=== PATIENT | male | born 1960 | race Caucasian/White ===

== ENCOUNTER 2017-02-22 17:56 | Emergency (ER) | payer BC ==
--- NOTE | 2017-02-22 18:49 | ED ---
Throat Pain/Nasal Congestion - HPI Summary HPI Summary: Pt here w/ 2 days h/o "jaw is not right". Has to thrust and hold it forward to speak and eat. He is able to chew food, swallow, and breath w/o difficulty. If he doesn't keep his jaw forward, he chews on his tongue. Denies recent injury and no h/o TMJ issues. Denies fever, chills, N/V/D, throat pain, otalgia, dental pain, JEFFERY, chest pain, shortness of breath, weakness, tingling, numbness, ab pain, change in bowel/bladder habits. No h/o osteoporosis. Healthy diet - no smoking, has 2 beers per week, no soda, no illicit drug use, no eating d/o. Only medical pathology of mention: *He had a URI 3 weeks ago - better now. No recent antibiotics nor prednisone. *Lifting recently - tried to get [place] for deadlift Tuesday (5 days ago) - denies acute pain then and has only mild jaw soreness now. Again, denies popping or pulling, cracking or sliding of jaw. - History of Current Complaint Chief Complaint: EDDentalPain Time Seen by Provider: 02/22/17 18:16 Hx Obtained From: Patient - Allergies/Home Medications Allergies/Adverse Reactions: Allergies Allergy/AdvReac Type Severity Reaction Status Date / Time No Known Allergies Allergy Verified 02/22/17 18:01 PMH/Surg Hx/FS Hx/Imm Hx Previously Healthy: Yes Endocrine/Hematology History: Denies: Hx Anticoagulant Therapy, Hx Blood Disorders, Hx Diabetes, Hx Thyroid Disease, Autoimmune Disease Cardiovascular History: Reports: Hx Hypertension - lisinopril Denies: Hx Cardiac Arrest, Hx Hypercholesterolemia, Hx Myocardial Infarction , Hx Peripheral Vascular Disease Musculoskeletal History: Reports: Hx Arthritis - shoulders Denies: Hx Osteoporosis Sensory History: Reports: Hx Contacts or Glasses - GLASSES Denies: Hx Cataracts, Hx Glaucoma, Hx Hearing Aid Opthamlomology History: Reports: Hx Contacts or Glasses - GLASSES, Other Sensory Impairments - H/o multiple retinal detachments in B/L eyes - repaired multiple times Denies: Hx Cataracts, Hx Glaucoma Neurological History: Denies: Hx Headaches, Hx Seizures, Hx Transient Ischemic Attacks (TIA) Psychiatric History: Denies: Hx Anxiety, Hx Depression, Hx Substance Abuse - Surgical History Surgery Procedure, Year, and Place: PROSTATE REMOVED. left and right rotator cuff. right ring finger PARTIAL AMPUTATION. RETINA REATTACHEMENT- [place]-2013 Hx Anesthesia Reactions: Yes - 1ST ROTATOR CUFF REPAIR- [facility] Infectious Disease History: No Infectious Disease History: Denies: Traveled Outside the [place] in Last 30 Days - Family History Known Family History: Positive: None - Social History Occupation: Employed Full-time Lives: With Family Alcohol Use: Weekly - beers 2 x week at most Hx Substance Use: No Substance Use Type: Reports: None Hx Tobacco Use: No Smoking Status (MU): Never Smoked Tobacco Review of Systems Negative: Fever, Chills, Fatigue Negative: Photophobia, Blurred Vision, Diplopia, Drainage, Erythema Negative: Epistaxis, Dental Pain, Sore Throat, Ear Ache, Nasal Discharge Negative: Palpitations, Chest Pain Negative: Shortness Of Breath, Cough Negative: Abdominal Pain, Vomiting, Diarrhea, Nausea Positive: no symptoms reported Musculoskeletal: Other - see HPI Negative: Rash, Bruising Positive: Weakness - ?. Negative: Headache, Paresthesia, Numbness, Syncope, Slurred Speech Psychological: Normal All Other Systems Reviewed And Are Negative: Yes Physical Exam Triage Information Reviewed: Yes Vital Signs On Initial Exam: Initial Vitals Temp Pulse Resp BP Pulse Ox 97.4 F 71 17 113/71 100 02/22/17 17:58 02/22/17 17:58 02/22/17 17:58 02/22/17 17:58 02/22/17 17:58 Vital Signs Reviewed: Yes Appearance: Positive: Well-Appearing, No Pain Distress, Well-Nourished Skin: Positive: Warm, Dry Head/Face: Positive: Normal Head/Face Inspection Eyes: Positive: Normal, EOMI, CHU, Conjunctiva Clear ENT: Positive: Normal ENT inspection, Hearing grossly normal, Pharynx normal, TMs normal, Other - depression and elevation of jaw w/o difficulty or pain - TMJ 's w/o edema, clicking or crepitus and are NTTP; no parotid region edema and NTTP. Negative: Nasal congestion, Nasal drainage, Tonsillar swelling, Tonsillar exudate, Trismus, Muffled/hoarse voice, Dental tenderness Dental: Negative: Dental Fracture @, Abscess @ Neck: Positive: Supple, Nontender, No Lymphadenopathy Respiratory/Lung Sounds: Positive: Clear to Auscultation, Breath Sounds Present Cardiovascular: Positive: Normal, RRR, Pulses are Symmetrical in both Upper and Lower Extremities Abdomen Description: Positive: Nontender, Soft Musculoskeletal: Positive: Normal, Strength/ROM Intact - pt speaks w/ jaw in underbite position - speech is clear appears to be breathing and swallowing naturally Neurological: Positive: Normal, Sensory/Motor Intact, Alert, Oriented to Person Place, Time, CN Intact II-III Psychiatric: Positive: Normal Diagnostics - Vital Signs Vital Signs Temp Pulse Resp BP Pulse Ox 02/22/17 18:00 97.4 F 67 17 113/71 100 02/22/17 17:58 97.4 F 71 17 113/71 100 - Laboratory Lab Statement: Any lab studies that have been ordered have been reviewed, and results considered in the medical decision making process. EENT Course/Dx - Diagnoses Provider Diagnoses: Weakness of jaw muscles Discharge - Discharge Plan Condition: Stable Disposition: HOME Patient Education Materials: Weakness (ED) Referrals: Augusto Mulligan MD [Primary Care Provider] - Lenny Landaverde MD [Medical Doctor] - Additional Instructions: You appear to have jaw weakness today - origin of pathology is unknown. You may try ibuprofen with food to reduce pain as well as application of ice. Follow-up with ENT - call tomorrow to schedule an appointment. *If you have difficulty breathing or swallowing or develop symptoms of chest pain, vomiting, rash, headache, neck pain, fever, neck swelling, return to ED
[2017-02-22 19:56] VITALS: BP 135/72
== END 2017-02-22 19:54 | disposition home or self-care (01) ==
LOC: ED 17:56
DX: M62.81 Muscle weakness (generalized) (principal)
CPT/HCPCS: 99282

== ENCOUNTER 2018-10-11 08:01 | Day surgery (SDC) | payer BC ==
[~2018-10-11 08:01] MED LIST: Buffered Lidocaine 0.9% SYRIN* 5 ML/SYR SYRINGE INTRADERM ONE; Dexamethasone TAB* 4 MG PO ONE; DiMENhydriNATE IV* 50 MG/ML VIAL IV PUSH PRN; Famotidine IV* 10 MG/ML 2 ML (20 mg) IV ONE; Morphine VIAL* 4 MG/ML VIAL (1 ml vial) IV PRN; Naloxone* 0.4 MG/ML 1 ML VIAL IV PRN; Ondansetron TAB* 4 MG PO ONE; PROCHLORPERAZINE INJ 5 MG/ML 2 ML VIAL IV PRN; Scopolamine 1.5 mg* PATCH TRANSDERM PRN; fentaNYL* 50 MCG/ML 2 ML VIAL (100 MCG VIAL) IV PRN; oxyCODONE/Acetamin 5/325 MG* TAB PO PRN
[2018-10-11] MEDS ORDERED: Ondansetron ODT TAB* 4 MG ONE (08:48)
[2018-10-11] MEDS ORDERED: Famotidine IV* 10 MG/ML 2 ML (20 mg) ONE (08:48)
[2018-10-11] MEDS ORDERED: ceFAZolin 2 GM PREMIX in ORs 2 GM/50 ML BAG IVPB ONE (08:49)
[2018-10-11] MEDS ORDERED: Dexamethasone TAB* 4 MG ONE (08:49)
[2018-10-11] MEDS ORDERED: Buffered Lidocaine 0.9% SYRIN* 5 ML/SYR SYRINGE ONE (08:56)
[2018-10-11] MEDS ORDERED: KETAMINE HCL* 50 MG/ML 10 ML VIAL ONE (08:57)
[2018-10-11] MEDS ORDERED: fentaNYL* 50 MCG/ML 2 ML VIAL (100 MCG VIAL) ONE (08:57)
[2018-10-11] MEDS ORDERED: Midazolam* 1 MG/ML 5 ML VIAL (5 MG) ONE (08:57)
[2018-10-11] MEDS ORDERED: Ropivacaine* 2 MG/ML 20 ML VIAL (0.2%) ONE (09:51)
[2018-10-11] MEDS ORDERED: Propofol* 10 MG/ML 20 ML BTL ONE (10:44)
[2018-10-11] MEDS ORDERED: Lidocaine 2% PF * 5 ML VIAL ONE (10:44)
[2018-10-11] MEDS ORDERED: Bupivacaine 0.5% SDV PF* 30ML VIAL ONE (10:44)
[2018-10-11] MEDS ORDERED: Scopolamine 1.5 mg* PATCH ONE (10:44)
[2018-10-11] MEDS ORDERED: Ketorolac INJ* 30 MG/ML 1 ML VIAL ONE (10:44)
[2018-10-11] MEDS ORDERED: PROCHLORPERAZINE INJ 5 MG/ML 2 ML VIAL ONE (10:44)
[2018-10-11 13:21] VITALS: BP 125/70
--- NOTE | 2018-10-12 07:03 | OP ---
DATE OF OPERATION: 10/11/18 - [facility] DATE OF : 58 SURGEON: Pippa Cedillo MD RANCH SUPERVISOR: PURVI Herman. An information services assistant was needed for the entirety of the case to help with positioning, retraction, and was utilized throughout all portions of the case. ANESTHESIOLOGIST: Dr. Gutiérrez. ANESTHESIA: General interscalene block. PRE-OP DIAGNOSIS: Left shoulder osteoarthritis with partial tear of the rotator cuff. POST-OP DIAGNOSIS: Left shoulder osteoarthritis with partial tear of the rotator cuff. OPERATIVE PROCEDURE: 1. Left shoulder arthroscopy with extensive glenohumeral debridement including chondroplasty. 2. Revision subacromial decompression with acromioplasty. 3. Rotator cuff repair using Regeneten patch. 4. Subpectoral biceps tenodesis. INDICATIONS: Jonathan Donaldson is a 58-year-old male, who has severe glenohumeral arthritis. He has failed intra-articular injections including Hyalgan as well as corticosteroids. He did respond to a steroid injection in the subacromial space. We did an MRI that demonstrated that the rotator cuff grossly was intact with possible partial-thickness tear. He is not interested in replacement. We did talk about other options. He elected to proceed with left shoulder arthroscopy with decompression and debridement, possible repair of the rotator cuff, possible biceps tenodesis. Risks and benefits were discussed at length included but not limited to bleeding; infection; damage to nerves, vessels, surrounding structures; wound nonhealing; persistent pain; need for further surgery; scarring; stiffness; incomplete relief of symptoms; risk of anesthesia. IMPLANTS USED: Medium Regeneten patch and one Q-Fix 2.8 mm. DESCRIPTION OF PROCEDURE: The patient was greeted in the preoperative area by the attending surgeon. Correct extremity was marked and consent was confirmed. The patient underwent interscalene nerve block by the anesthesiologist after which he was brought back to the operating suite where he was placed in supine position on the operating table. He then underwent general anesthesia LMA intubation after which he was placed in the right lateral decubitus position and all bony prominences were padded. He was secured with pegboard. The left shoulder was prepped and draped in the usual sterile fashion beginning with chlorhexidine soap, scrub, and alcohol wipe and a final prep with ChloraPrep. After appropriate surgical pause indicating side, site, procedure, and administration of antibiotics, the standard postero-lateral portal was made sharply with 11 blade. There was significant osteoarthritis with grade 4 changes. There were small loose bodies and debris that was present. There was obvious tearing in the anterior, posterior, and superior labrum. The anterior portal was made in an outside-in fashion. Shaver was used to debride back the anterior, posterior, and superior labrum, remove the loose bodies. There was abundant synovitis present. The biceps was subluxed mildly anteriorly. The undersurface of the rotator cuff specifically supra and subscap looked intact but had some mild partial-thickness tearing. The subscapularis had some tearing as well there was evidence of damage to the biceps jazlyn. The biceps was then tenotomized for later tenodesis. After the debridement was complete including chondroplasty, the attention was directed to the subacromial space. With the scope in the subacromial space, the lateral portal was made in an outside- in fashion. Shaver was used to debride back the abundant significant bursitis that was present. This revealed very sharp anterolateral spur and previous sutures that were placed from the deltoid fixation. The shaver was used to debride back the abundant synovitis. Attention was directed to the acromioplasty, which was revised and using 4.0 oval bur, the acromioplasty was done including removing the calcified CA ligament in the anterolateral spur. Two foreign bodies were removed, which were non-absorbable Ethibond sutures as well. Attention was then directed to the cuff. The cuff was probed and there was partial-thickness tearing of the bursal side. Because he had findings of partial-thickness tearing, we decided to proceed with a Regeneten patch. The medium-size medium patch was then brought to the field. It was then placed under arthroscopic visualization. It was secured medially with tendon edouard through a separate stab incision and then laterally with bone edouard. The shoulder was taken through range of motion. Final images were obtained. The wounds were copiously irrigated with sterile saline. Attention was directed to the biceps. The bed was air planed to the left side. The anterior aspect of the shoulder was prepped again using ChloraPrep. A 15-blade was used to make an incision in line with the biceps tendon. The soft tissues were carefully dissected to expose the pec tendon. Remainder of the dissection was done bluntly. The pec was then elevated. The bicipital groove was palpated and the biceps was brought through the wound. The groove was prepared in the usual fashion with electrocautery device, red ball rasp, and osteotome for bony bleeding bed. The Q-Fix drill guide was then drilled unicortically and the Q-Fix was deployed with excellent purchase. Sutures were then passed through the tendon 1 cm proximal to the musculotendinous junction in a Agustin-Salvatore type configuration, the excess stump was excised and the biceps was shuttled back to the wound. The wounds were then copiously irrigated and then secured. The wounds were then copiously irrigated with sterile saline. The portals were closed with 3-0 nylon. The anterior wound was closed in layers with 2- 0 Vicryl and 3-0 Monocryl. Sterile dressings were applied. A Cryo/Cuff and UltraSling were applied. He was awoken from anesthesia and transferred to PACU in stable condition. POSTOPERATIVE PLAN: He will be discharged on pain medications and antibiotics. He is allowed elbow, hand, and wrist range of motion. Will have him start therapy next week. DVT prophylaxis was considered but deferred due to no previous personal or family history. I will see the patient back in 10 to 14 days. [id number]/[facility] #: [id number] ELI
[2018-10-14] MEDS ORDERED: Scopolamine PATCH Remove* 1 NOTE MISC PATCH OFF ONE (05:57)
== END 2018-10-11 13:22 | disposition home or self-care (01) ==
LOC: OR 08:01
PROVIDERS: ATTEND Orthopaedic Surgery
DX: M19.012 Primary osteoarthritis, left shoulder (principal); M65.812 Other synovitis and tenosynovitis, left shoulder; M75.112 Incomplete rotator cuff tear or rupture of left shoulder, not specified as traumatic; G89.18 Other acute postprocedural pain; I10 Essential (primary) hypertension; Z85.46 Personal history of malignant neoplasm of prostate
CPT/HCPCS: A9270-GY; C1713; J0690; J0780; J1885; J2250; J2704; J2795; J3010; J8540

== ENCOUNTER 2019-03-07 05:33 | Day surgery (SDC) | payer BC ==
--- NOTE | 2019-02-27 20:58 | HP ---
PREOPERATIVE HISTORY AND PHYSICAL: DATE OF ADMISSION / SURGERY: 03/07/19 ATTENDING SURGEON: Dr. Pippa Cedillo.* (DICTATED BY PURVI HILL) PROCEDURE: Right shoulder arthroscopic rotator cuff repair, decompression, debridement, and subpectoral biceps tenodesis. CHIEF COMPLAINT: Right shoulder pain. HISTORY OF PRESENT ILLNESS: Jonathan is a 58-year-old male, who presents to the clinic for right shoulder pain due to a rotator cuff tear and biceps tendinitis. He has failed conservative measures and therefore agreed to undergo a right shoulder arthroscopic rotator cuff repair, decompression, debridement, and subpectoral biceps tenodesis on 03/07/19. PAST MEDICAL HISTORY: Hypertension, history of prostate cancer. PAST SURGICAL HISTORY: Two shoulder surgeries by Dr. Adame, which were AC resection and decompression, history of prostate resection, 3 eye surgeries for retinal detachment, 2 hand surgeries, and left shoulder arthroscopy with decompression, debridement, biceps tenodesis, and Regeneten patch. The patient denies prior complications to anesthesia. MEDICATIONS: 1. Lisinopril 1 by mouth daily. 2. Ibuprofen as needed for pain. ALLERGIES: No known drug allergies. FAMILY HISTORY: Positive for lung cancer in his father and osteoarthritis, otherwise negative. Denies family history of DVT or PE. SOCIAL HISTORY: He lives alone. He is right-hand dominant. He works in maintenance. He denies tobacco consumption. He reports rare alcohol use. REVIEW OF SYSTEMS: A 14-point review of systems was reviewed with the patient. Positive for current complaint, otherwise negative. Denies fever, chills, chest pain, shortness of breath, history of bleeding disorder, history of DVT or PE. PHYSICAL EXAMINATION GENERAL: A 58-year-old well-developed, well-nourished male, in no acute distress. VITAL SIGNS: Height 69, weight 182, blood pressure 138/82, respiratory rate 15 , temperature 96.5, BMI 26.9. HEENT: Normocephalic, atraumatic. PERRLA. Throat clear. NECK: Supple. PULMONARY: Lungs are clear to auscultation bilaterally. No wheezing, rhonchi or rales. CARDIO: Regular rate and rhythm. S1, S2. No murmurs, gallops or rubs. No edema. ABDOMEN: Positive bowel sounds. Soft, nontender. NEURO: Alert and oriented x3. Cranial nerves grossly intact. MUSCULOSKELETAL: Right upper extremity: Skin is intact. No warmth or erythema. Forward flexion 150, abduction 150, external rotation 50. +4/5 strength to rotator cuff testing with pain. Full range of motion of the elbow, wrist, and hand. +2 radial pulse. Sensation intact to light touch distally. Positive impingement, Speed, Reaves-Les, [place]. DIAGNOSTIC STUDIES/LAB DATA: Multi-view x-rays of the right shoulder revealed glenohumeral osteoarthritis. PLAN/RECOMMENDATIONS: The patient is scheduled to undergo right shoulder arthroscopic rotator cuff repair, decompression, debridement, subpectoral biceps tenodesis with Dr. Cedillo on 03/07/19. Tylenol, ibuprofen, and Percocet will be used for postop pain management, but the patient already has Percocet at home and does not need a new script. Follow up i 10 to 14 days postop for followup and suture removal. PURVI HILL [id number]/[facility] #: [id number] MTDD
[~2019-03-07 05:33] MED LIST changes: -Buffered Lidocaine 0.9% SYRIN* 5 ML/SYR SYRINGE INTRADERM ONE; +Buffered Lidocaine 1% SYRIN* 1 ML/SYRINGE INTRADERM ONE; -Dexamethasone TAB* 4 MG PO ONE; -DiMENhydriNATE IV* 50 MG/ML VIAL IV PUSH PRN; -Famotidine IV* 10 MG/ML 2 ML (20 mg) IV ONE; -Morphine VIAL* 4 MG/ML VIAL (1 ml vial) IV PRN; -Naloxone* 0.4 MG/ML 1 ML VIAL IV PRN; -Ondansetron TAB* 4 MG PO ONE; -PROCHLORPERAZINE INJ 5 MG/ML 2 ML VIAL IV PRN; -Scopolamine 1.5 mg* PATCH TRANSDERM PRN; -fentaNYL* 50 MCG/ML 2 ML VIAL (100 MCG VIAL) IV PRN; -oxyCODONE/Acetamin 5/325 MG* TAB PO PRN
[2019-03-07] MEDS ORDERED: Dexamethasone IV* 4 MG/ML 1 ML (4 MG) IV SLOW PU ONE (06:00)
[2019-03-07] MEDS ORDERED: Famotidine IV* 10 MG/ML 2 ML (20 mg) IV ONE (06:00)
[2019-03-07] MEDS ORDERED: Lactated Ringers 1000 ML Bag* 1,000 ML IV SCH (06:00)
[2019-03-07] MEDS ORDERED: Buffered Lidocaine 1% SYRIN* 1 ML/SYRINGE INTRADERM ONE (06:04)
[2019-03-07] MEDS ORDERED: ceFAZolin 2 GM in NS PREMIX(*) 2 GM/100 ML BAG IVPB ONE (06:04)
[2019-03-07] MEDS ORDERED: Dexamethasone IV* 4 MG/ML 1 ML (4 MG) ONE (06:04)
[2019-03-07] MEDS ORDERED: Famotidine IV* 10 MG/ML 2 ML (20 mg) ONE (06:04)
[2019-03-07] MEDS ORDERED: Ropivacaine* 2 MG/ML 20 ML VIAL (0.2%) ONE (06:41)
[2019-03-07] MEDS ORDERED: Scopolamine 1.5 mg* PATCH ONE (07:06)
[2019-03-07] MEDS ORDERED: fentaNYL* 50 MCG/ML 2 ML VIAL (100 MCG VIAL) ONE ×4 (07:14→09:35)
[2019-03-07] MEDS ORDERED: Atracurium* 10 MG/ML 10 ML VIAL ONE (07:14)
[2019-03-07] MEDS ORDERED: Midazolam* 1 MG/ML 5 ML VIAL (5 MG) ONE (07:14)
[2019-03-07] MEDS ORDERED: Propofol* 10 MG/ML 20 ML BTL ONE (07:15)
[2019-03-07] MEDS ORDERED: Lidocaine 2% PF * 5 ML VIAL ONE (07:15)
[2019-03-07] MEDS ORDERED: Ondansetron INJ* 2 MG/ML VIAL ONE (07:15)
[2019-03-07] MEDS ORDERED: ROPIVACAINE 5 MG/ML 30 ML BTL (0.5%) ONE (07:20)
[2019-03-07] MEDS ORDERED: Scopolamine 1.5 mg* PATCH TRANSDERM SCH (08:00)
[2019-03-07] MEDS ORDERED: Ondansetron INJ* 2 MG/ML VIAL IV PRN (08:29)
[2019-03-07] MEDS ORDERED: Naloxone* 0.4 MG/ML 1 ML VIAL IV PRN (08:29)
[2019-03-07] MEDS ORDERED: DiMENhydriNATE IV* 50 MG/ML VIAL IV PUSH PRN (08:29)
[2019-03-07] MEDS ORDERED: Glycopyrrolate IV* 0.2 MG/ML 1 ML VIAL ONE (08:36)
[2019-03-07] MEDS: fentaNYL* 50 MCG/ML 2 ML VIAL (100 MCG VIAL) IV PRN ×2 (09:36→09:56)
[2019-03-07] MEDS ORDERED: oxyCODONE/Acetamin 5/325 MG* TAB ONE ×2 (10:02→10:22)
[2019-03-07] MEDS: oxyCODONE/Acetamin 5/325 MG* TAB PO PRN ×2 (10:05→10:34)
[2019-03-07] MEDS ORDERED: HYDROmorphone INJ1* 1 MG/ML SYRINGE ONE (11:12)
[2019-03-07] MEDS: HYDROmorphone INJ1* 1 MG/ML SYRINGE IV PRN ×3 (11:13→11:44)
[2019-03-07 11:21] VITALS: BP 148/96
[2019-03-07] MEDS ORDERED: Ketorolac INJ* 60 MG/2 ML VIAL IV PUSH ONE (11:47)
[2019-03-07] MEDS ORDERED: Ketorolac INJ* 30 MG/ML 1 ML VIAL ONE (11:47)
--- NOTE | 2019-03-07 14:23 | OP ---
CC: PCP* OPERATIVE REPORT: DATE OF OPERATION: 03/07/19 - SDS DATE OF : 58 SURGEON: Pippa Cedillo MD. CONFERENCE TRANSLATOR: PURVI Herman ANESTHESIOLOGIST: Dr. Upton. ANESTHESIA: General interscalene block. PRE-OP DIAGNOSIS: Right shoulder glenohumeral arthritis with partial tearing of the rotator cuff. POST-OP DIAGNOSIS: Right shoulder glenohumeral arthritis with partial tearing of the rotator cuff. OPERATIVE PROCEDURE: Right shoulder arthroscopy with: 1. Extensive glenohumeral debridement including chondroplasty. 2. Subacromial decompression with acromioplasty. 3. Rotator cuff repair using Regeneten patch. 4. Open biceps tenodesis. COMPLICATIONS: None. ESTIMATED BLOOD LOSS: Minimal. IMPLANTS USED: One Regeneten patch and one Q-Fix 2.8 mm. INDICATIONS: Jonathan Donaldson is a 58-year-old male who has had persistent bilateral shoulder pain and osteoarthritis. He also has rotator cuff symptoms. The risks and benefits of the surgery were discussed at length including, but not limited to bleeding; infection; damage to nerves, vessels, surrounding structures; wound nonhealing; persistent pain; need for further surgery; scarring; stiffness; incomplete relief of symptoms; risks of anesthesia. DESCRIPTION OF PROCEDURE: The patient was greeted in the preoperative area by the attending surgeon. The correct extremity was marked and consent was confirmed. He then underwent interscalene nerve block by the anesthesiologist, after which he was brought back to the operating suite and he was placed in the supine position on the operating table. He then underwent general anesthesia and endotracheal intubation. He was then placed in the left lateral decubitus position. All bony prominences were padded and secured with pegboard. The right shoulder was draped unsterile with 15 pounds of traction for a good traction. The right shoulder was then prepped and draped in the usual sterile fashion beginning with chlorhexidine soap, scrub, and alcohol wipe, and a final prep with ChloraPrep. After appropriate surgical pause indicating the side, site, procedure, and administration of antibiotics, the standard posterolateral portal was made sharply with 11 blade. The scope was introduced into the joint. The joint was examined. There was grade 3 to 4 changes of the glenohumeral joint. The biceps had unstable tearing and fraying. The undersurface of the rotator cuff had high -grade partial thickness tearing, but no evidence of full thickness tear. Inferior recess was intact. There was abundant synovitis. The anterior portal was made in an outside- in fashion. Shaver was used to debride back the anterior, posterior, and superior labrum to do chondroplasty. There was a small loose body, but it appeared to be adherent. The biceps was then tenotomized for later tenodesis. The scope was positioned in the subacromial space. There was abundant significant thick bursa with adhesions present. This was debrided back using the shaver in the anterior lateral portal. Most of this was hyperemic and this was debrided back. The hemostasis was obtained using electrocautery device. Once this was done, the undersurface of the acromion was skeletonized using electrocautery device. The previous sutures from the previous surgery were identified. A revision acromioplasty was done using a 4-0 oval samina. All excess bone and debris was removed. Again, attention was directed to make sure the abundant bursa was removed. The cuff was then probed and found to be intact on the bursal side. Decision was made to proceed with the Regeneten patch. The size medium Regeneten patch was then brought to the field and placed under direct arthroscopic visualization. Through 2 separate stab incisions, cannulas were placed and these were utilized to place the tendon edouard medially, secured the graft and then laterally it was secured with the PEEK edouard in the bone. The final images were obtained. The shoulder was taken through gentle range of motion and found to be intact. Attention was then directed to the biceps. The bed was air planed to the right side. The anterior aspect of the shoulder was prepped again using ChloraPrep. A 15-blade was used to make an incision along the biceps tendon. Soft tissues were carefully dissected bluntly. The pec tendon was then identified and elevated with a Brooklynn. The biceps was found in the groove and brought through the wound and had abundant synovitis. The groove was prepared in the usual fashion using electrocautery device, red ball rasp, and osteotome. The Q- Fix guide was then drilled unicortically, and then the Q-Fix was deployed with excellent purchase. The sutures were then passed through the tendon approximately 1 cm proximal to musculotendinous junction using Agustin-Salvatore type configuration. Excess stump was excised and the biceps was shuttled back to the wound. The wounds were then copiously irrigated with sterile saline. Portals were closed with 3-0 nylon. The skin was closed with layers of 3-0 Monocryl in subcutaneous and running suture. Sterile dressings were applied. Cryo/Cuff and UltraSling were applied. He was awoken from anesthesia and transferred to PACU in stable condition. POSTOPERATIVE PLAN: He will be nonweightbearing. He will be in a sling for 4 weeks. He will be discharged on pain medication. DVT prophylaxis was considered, but deferred due to no previous personal or family history. I will see the patient back in 10 to 14 days. [id number]/[facility] #: [id number] ELI
== END 2019-03-07 12:35 | disposition home or self-care (01) ==
LOC: OR 05:33
PROVIDERS: ATTEND Orthopaedic Surgery
DX: M75.111 Incomplete rotator cuff tear or rupture of right shoulder, not specified as traumatic (principal); M19.011 Primary osteoarthritis, right shoulder; M75.21 Bicipital tendinitis, right shoulder; I10 Essential (primary) hypertension; Z85.46 Personal history of malignant neoplasm of prostate
CPT/HCPCS: A9270-GY; C1713; C1776; J0690; J1100; J1170; J1885; J2250; J2405; J2704; J2795; J3010

== ENCOUNTER 2019-05-24 14:28 | Inpatient (IN) | payer BC ==
[~2019-05-24 14:28] MED LIST changes: +Acetaminophen TAB* 325 MG PO ONE; +Dexamethasone IV* 4 MG/ML 1 ML (4 MG) IV SLOW PU ONE; +Famotidine TAB* 20 MG PO ONE; +Gabapentin CAP(*) 300 MG PO ONE; +Lactated Ringers 1000 ML Bag* 1,000 ML IV SCH; +Scopolamine 1.5 mg* PATCH TRANSDERM ONE; +celeCOXIB CAP* 200 MG PO ONE
[2019-05-24] MEDS ORDERED: ceFAZolin 2 GM in NS PREMIX(*) 2 GM/100 ML BAG IVPB ONE (14:37)
[2019-05-24] MEDS ORDERED: Buffered Lidocaine 1% SYRIN* 1 ML/SYRINGE INTRADERM ONE (14:51)
[2019-05-24] MEDS ORDERED: Lidocaine 1% MPF ** 5 ML VIAL ONE (15:14)
[2019-05-24] MEDS ORDERED: ROPIVACAINE 5 MG/ML 30 ML BTL (0.5%) ONE (15:14)
[2019-05-24] MEDS ORDERED: Famotidine IV* 10 MG/ML 2 ML (20 mg) IV SLOW PU ONE (15:19)
[2019-05-24] MEDS ORDERED: Famotidine IV* 10 MG/ML 2 ML (20 mg) ONE (15:20)
[2019-05-24] MEDS ORDERED: Scopolamine 1.5 mg* PATCH ONE ×2 (15:28→20:58)
[2019-05-24] MEDS ORDERED: Gabapentin CAP(*) 300 MG ONE (15:28)
[2019-05-24] MEDS: Gabapentin CAP(*) 300 MG PO ONE ×2 (15:31→15:35)
[2019-05-24] MEDS: Scopolamine 1.5 mg* PATCH TRANSDERM SCH ×2 (15:31→15:35)
[2019-05-24] MEDS ORDERED: Midazolam* 1 MG/ML 5 ML VIAL (5 MG) ONE (15:47)
[2019-05-24] MEDS ORDERED: fentaNYL* 50 MCG/ML 2 ML VIAL (100 MCG VIAL) ONE ×2 (15:47→18:08)
[2019-05-24] MEDS ORDERED: Dexamethasone IV* 4 MG/ML 1 ML (4 MG) ONE (15:49)
[2019-05-24] MEDS ORDERED: Ondansetron INJ* 2 MG/ML VIAL ONE (15:49)
[2019-05-24] MEDS ORDERED: Ketorolac INJ* 30 MG/ML 1 ML VIAL ONE (15:49)
[2019-05-24] MEDS ORDERED: Propofol* 10 MG/ML 20 ML BTL ONE ×2 (15:49→20:23)
[2019-05-24] MEDS ORDERED: DiMENhydriNATE IV* 50 MG/ML VIAL ONE (15:49)
[2019-05-24] MEDS ORDERED: Glycopyrrolate IV* 0.2 MG/ML 1 ML VIAL ONE (15:49)
[2019-05-24] MEDS ORDERED: KETAMINE HCL* 50 MG/ML 10 ML VIAL ONE (17:12)
[2019-05-24] MEDS ORDERED: Acetaminophen IV 1GM/100ML * 1,000 MG/100 ML VIAL IVPB ONE (19:16)
[2019-05-24] MEDS ORDERED: oxyCODONE TAB* 5 MG TAB PO PRN ×2 (19:16→19:38)
[2019-05-24] MEDS ORDERED: HYDROmorphone INJ1* 1 MG/ML SYRINGE IV PRN (19:16)
[2019-05-24] MEDS ORDERED: Naloxone* 0.4 MG/ML 1 ML VIAL IV PRN (19:16)
[2019-05-24] MEDS ORDERED: DiMENhydriNATE IV* 50 MG/ML VIAL IV PUSH PRN (19:16)
[2019-05-24] MEDS ORDERED: Gabapentin CAP(*) 100 MG PO ONE (19:18)
[2019-05-24] MEDS ORDERED: diPHENhydraMINE IV* 50 MG/ML 1 ml VIAL (BENADRYL) IV PRN (19:38)
[2019-05-24] MEDS ORDERED: traMADol TAB* 50 MG PO PRN (19:38)
[2019-05-24] MEDS ORDERED: Cyclobenzaprine TAB* 10 MG PO PRN (19:38)
[2019-05-24] MEDS ORDERED: Polyethylene Glycol 3350* 17 GM PACKET PO PRN (19:38)
[2019-05-24] MEDS ORDERED: Ondansetron INJ* 2 MG/ML VIAL IV PRN (19:38)
[2019-05-24] MEDS ORDERED: Morphine 4 MG/ML VIAL (1 ml) 4 MG/ML VIAL IV PRN (19:38)
[2019-05-24] MEDS ORDERED: diPHENhydraMINE PO* 25 MG PO PRN (19:38)
[2019-05-24] MEDS ORDERED: Magnesium Hydroxide LIQ* 30 ML UDC PO PRN (19:38)
[2019-05-24] MEDS ORDERED: oxyCODONE/Acetamin 5/325 MG* TAB PO PRN (19:50)
[2019-05-24] MEDS ORDERED: Acetaminophen TAB* 325 MG PO SCH (20:00)
[2019-05-24] MEDS ORDERED: Lactated Ringers 1000 ML Bag* 1,000 ML IV SCH (20:00)
[2019-05-24] MEDS ORDERED: HYDROmorphone INJ1* 1 MG/ML SYRINGE ONE (20:06)
[2019-05-24] MEDS ORDERED: Gabapentin CAP(*) 100 MG ONE (20:18)
[2019-05-24] MEDS ORDERED: Acetaminophen IV 1GM/100ML * 100 ML ONE (20:19)
[2019-05-24] MEDS: Magnesium Hydroxide LIQ* 30 ML UDC PO SCH (23:20)
[2019-05-24] MEDS: Docusate CAP* 100 MG PO SCH (23:20)
--- NOTE | 2019-05-25 00:58 | OP ---
CC: PCP, Augusto Mulligan MD * DATE OF OPERATION: 05/24/19 - ROOM #332 DATE OF : 58 SURGEON: Pippa Cedillo MD ASSISTANTS: 1. PURVI Herman 2. PRUVI Kirkland Assistants were needed for the entirety of the case to help with positioning, retraction, and were utilized throughout all portions of the case. ANESTHESIOLOGIST: Dr. Carrillo. ANESTHESIA: General interscalene block. PRE-OP DIAGNOSIS: Right shoulder end-stage glenohumeral arthritis and intact rotator cuff. POST-OP DIAGNOSIS: Right shoulder end-stage glenohumeral arthritis and intact rotator cuff. OPERATIVE PROCEDURE: Right anatomic total shoulder replacement. COMPLICATIONS: None. ESTIMATED BLOOD LOSS: About 200. IMPLANTS USED: Tornier Simplicity size 2 nucleus with a 46 head and a size M30 Cortiloc peg glenoid. OUTPUT: Drain x1. DISPOSITION: Stable. INDICATIONS: Jonathan Donaldson is a 59-year-old male with persistent right shoulder pain and a partial tear of the rotator cuff. He had undergone arthroscopy with biceps tenodesis and decompression in a Regeneten patch in hopes of trying get this to heal. He subsequently had struggled and his pain was found to be intraarticular. After extensive discussion of the risks and benefits of the operative versus nonoperative treatment, he has elected to proceed with surgical treatment. Risks and benefits were discussed at length included but not limited to bleeding, infection, damage to nerves, vessels, surrounding structures, wound nonhealing, persistent pain, need for surgery, scarring, stiffness, incomplete relief of symptoms, need for further surgery, failure of the repair, fracture, risks of anesthesia, risk of DVT. He has elected to proceed. DESCRIPTION OF PROCEDURE: The patient was greeted in the preoperative area by the attending surgeon. Correct extremity was marked and consent was confirmed. The patient underwent interscalene nerve block by the anesthesiologist after which he was brought back to the operating suite. He was then placed in the supine position, underwent general anesthesia with endotracheal intubation after which he was placed in a lazy beach chair position with all bony prominences padded. A bump was placed under the scapula. The patient was secured to the bed. All bony prominences were padded. The right arm was then prepped and draped in the usual sterile fashion, beginning with chlorhexidine soap, scrub, and alcohol wipe and a final prep of ChloraPrep. After appropriate surgical pause indicating site, side, procedure, and administration of antibiotics, the deltopectoral incision was made sharply with a 15 blade. Soft tissues were carefully dissected through the deltopectoral interval, which was then established. The cephalic vein was taken laterally. The significant scar tissue of clavipectoral fascia was examined in the patient and preoperative range of motion testing with 4+ about 120 abduction and 90 of external rotation to the 30 degree. The patient had undergone previous biceps tenodesis from the previous surgery, but there is abundant scar tissue in clavipectoral fascia that was identified. The conjoint tendon was identified and dissection was taken through that. The proximal 1.5 cm was then released with the pec tendon. Hemostasis was obtained at all times with the electrocautery device. The bicipital groove was palpated and biceps was retracted proximally. The subscap was identified proximally and distally and then the subscapular fascia was used to release. The subscap was intact with # 5 Ethibond suture. The head was gently externally rotated and brought through the wound. The rotator cuff supraspinatus had some partial thickness tearing at the anterior aspect. proceed with primary replacement based on the patient's activity level. The head had grade 4 changes with large anterior inferior osteophytes which were debrided using the osteotome and removed to expose the head and neck junction. After the supervision, then a provisional neck cut was first marked and then made using freehand technique. The care was taken to protect the rotator cuff throughout. The Simplicity system was then used. First the appropriate size guide was then placed. A size 2 was found to be appropriate. The standard pin was then placed. The bone quality was very good. The humerus was then reamed and then the starting drill had to be used before the nucleus could be advanced. Because of the very good part of bone, a size 1 was used as a trial and then protector plate was placed. Attention was directed to the glenoid. With the posterior retractor placed, the posterior retractors were quite tight. Care was taken prior to preserve the rotator cuff. CA ligament was released somewhat but not entirely to prevent instability. The glenoid was exposed, had significant synovitis. The anterior, posterior, superior labrum were then released using electrocautery device. The inferior labrum was exposed as well with care to prevent the soft tissues. At this point, provisional marking to find out superior, inferior, anterior, and posterior borders were identified. The subscap was released from the superior middle and inferior glenohumeral ligaments and that was mobilized. The glenoid was exposed. The center point was then marked. The sizing guides were placed and M30 was found to be more appropriate fit with the patient size of glenoid. Reaming then began after a guidewire was placed in the center of the glenoid. Remaining then began until good bony bleeding was identified. Once this was done, the center drill bit was then drilled. The glenoid Cortiloc peg guide was then placed and three peg holes were then drilled. The trial was then placed and once it was found to be seated appropriately, the final trial was chosen. The shoulder was then thoroughly lavaged and removed of any loose debris and thoroughly dried. Cement was mixed on the back table. The cement was then placed in the 3 interlocking peg holes and the implant was impacted into position and held until the cement secured. Excess cement was removed to prevent any foreign body or loose bodies. Once this was done, attention was directed to the humerus. The humerus was brought through the wound again. The trialing began. A size 46 was found to be appropriate with a good amount of anterior posterior glide and shuck and bounced back. This was found to not overstuff and allowed for good range of motion with forward flexion to about 150, abduction to about 110, external rotation would be measured with subscap. Subscap was able to be restored without overtightening. Final implants were chosen on the humerus. The trial was removed. The size 2 nucleus was then impacted into position. Right after trans osteotomes were placed for the subscap repair, the final implants and head were impacted into position. The shoulder was then reduced and taken through range of motion. The subscap was then repaired in a horizontal mattress configuration. An attempt to try to do a double-row fixation was made but the bone quality was so hard, it could not hold knotless anchor. The interval was closed with #2 Ethibond sutures. The subscap was closed with excellent purchase. The wounds were copiously irrigated with sterile saline. Intraarticular drain was placed and the deltopectoral interval was closed with #2 Ethibond sutures. The wounds were irrigated again. The skin was closed in layers with 3-0 Monocryl in a subcutaneous and then a running fashion. Sterile dressings were applied. The patient's Cryo/Cuff and UltraSling were placed. The patient was then awoken from anesthesia and transferred to the PACU in stable condition. POSTOPERATIVE PLAN: He will be nonweightbearing. He will be in a sling for 6 weeks. He will be admitted overnight and discharged on pain medications, Lovenox while in house and home without any DVT prophylaxis. He will receive 24 hours of postoperative antibiotics. We will see the patient back in 10 to 14 days. Postoperative x-rays reviewed and found to be acceptable. Drain will be discharged on postop day 1. [id number]/[facility] #: [id number] MTDRegan
[2019-05-25] MEDS: ceFAZolin 1 GM ADVAN(*) 1 GM in NS 0.9% 50 ML* 50 ML IVPB SCH ×2 (02:38→10:26)
[2019-05-25] MEDS: oxyCODONE/Acetamin 5/325 MG* TAB PO PRN ×3 (04:22→13:18)
[2019-05-25] MEDS: Acetaminophen TAB* 325 MG PO SCH ×2 (05:18→14:14)
[2019-05-25 08:04] LABS: Calcium 9.1 mg/dL (8.6-10.3); Potassium 4.7 mmol/L (3.5-5.0)
[2019-05-25 08:09] LABS: BUN/Creatinine Ratio 19.6 (8-20); EGFR African American 90.1 (>60); EGFR Non-African American 74.5 (>60)
[2019-05-25] MEDS: Docusate CAP* 100 MG PO SCH (08:56)
[2019-05-25] MEDS: Magnesium Hydroxide LIQ* 30 ML UDC PO SCH (08:56)
[2019-05-25] MEDS ORDERED: Enoxaparin(*) 40 MG/0.4 ML SYR SUBCUT SCH (09:00)
[2019-05-25] MEDS ORDERED: Lisinopril TAB* 10 MG PO SCH (09:00)
[2019-05-25 09:06] LABS: Hematocrit 36 % (42-52); Hemoglobin 12.3 g/dL (14.0-18.0); Mean Platelet Volume 8.5 fL (7.4-10.4); Platelet Count 217 10^3/uL (150-450)
--- NOTE | 2019-05-25 11:00 | DS ---
Orthopedic Discharge Summary - Discharge Summary Date of Admission:05/24/19 Date of Discharge: 05/25/19 Date of Surgery: 05/24/19 Attending Orthopedic Provider: Dr. Cedillo Pre-operative Diagnosis: Degenerative arthritis right shoulder Operative Procedure: Right total shoulder arthroplasty Disposition of Patient: home Condition of Patient: stable History: MELISA BALDERAS is a 59 year old M with years of increasingly severe right shoulder pain. Patient has failed conservative management and has elected to undergo a right total shoulder replacement Hospital Course: MELISA was admitted to [facility] on 05/24/19. Patient underwent a right total shoulder arthroplasty without complication followed by a brief recovery in PACU and transfer to the Short Stay Surgical Unit in stable condition. Our hospitalist service, physical therapy and occupational therapy also participated in this patients care. Post-op day 1: patient was alert and in no acute distress. Dressing was clean, dry and intact. Operative extremity hand and wrist motion intact, sensation intact to light touch distally, DP2+. dressing was changed, hemovac discontinued without difficulty,incision was clean, dry and intact. Dressing with 4x4s and Tega derm applied. Patient was deemed to be medically and orthopedically stable for discharge. Physical therapy goals were met. Home Medications Medication Instructions Recorded Confirmed Type Lisinopril/HCTZ 08/25.5(NF) 1 tab PO QAM 10/24/14 05/24/19 History [Zestoretic 08/25.5(NF)] Diclofenac Sodium 75 mg PO BID 05/10/19 05/24/19 History Docusate CAP* [Colace Cap*] 100 mg PO BID cap 05/25/19 Rx Continue with sling, non weight bearing right upper extremity no Range of motion right shoulder, may range elbow, wrist and fingers Patient did not need rx of narcotics, states he has Percocet from prior surgery to use follow up with as scheduled 10-14 days
[2019-05-25] MEDS ORDERED: Cephalexin CAP* 500 MG PO ONE ×2 (11:34→12:30)
[2019-05-25 11:54] VITALS: BP 113/60
[2019-05-27] MEDS ORDERED: Scopolamine PATCH Remove* 1 NOTE MISC PATCH OFF SCH (15:30)
== END 2019-05-25 13:34 | disposition home or self-care (01) | DRG 322 ==
LOC: AA 14:28 → SSU 22:00
PROVIDERS: ADMIT Orthopaedic Surgery; ATTEND Orthopaedic Surgery
PROC: 0RRJ0JZ Replacement of Right Shoulder Joint with Synthetic Substitute, Open Approach (ICD-10-PCS; principal; 2019-05-24 16:00)
DX: M19.011 Primary osteoarthritis, right shoulder (principal); H33.20 Serous retinal detachment, unspecified eye; I10 Essential (primary) hypertension; M75.111 Incomplete rotator cuff tear or rupture of right shoulder, not specified as traumatic; J30.2 Other seasonal allergic rhinitis; E78.00 Pure hypercholesterolemia, unspecified; Z82.49 Family history of ischemic heart disease and other diseases of the circulatory system; Z90.79 Acquired absence of other genital organ(s); Z85.46 Personal history of malignant neoplasm of prostate; Z80.1 Family history of malignant neoplasm of trachea, bronchus and lung; Z82.61 Family history of arthritis; Z89.021 Acquired absence of right finger(s); Z98.52 Vasectomy status; Z82.5 Family history of asthma and other chronic lower respiratory diseases
CPT/HCPCS: 36415; 80048; 85014; 85018; 85049; A9270-GY; G8978-GP-CI; G8979-GP-CH; J0690; J1100; J1170; J1240; J1650; J1885; J2250; J2405; J2704; J2795; J3010

== ENCOUNTER 2019-11-16 06:29 | Inpatient (IN) | payer BC ==
[~2019-11-16 06:29] MED LIST changes: -Acetaminophen TAB* 325 MG PO ONE; -Dexamethasone IV* 4 MG/ML 1 ML (4 MG) IV SLOW PU ONE; -Famotidine TAB* 20 MG PO ONE; -Gabapentin CAP(*) 300 MG PO ONE; -Scopolamine 1.5 mg* PATCH TRANSDERM ONE; +Tranexamic Acid 1,000 MG in NS 0.9% 50 ML* (outpatient use) IV SCH; -celeCOXIB CAP* 200 MG PO ONE
--- OUTSIDE RECORDS SUMMARY | 2019-11-16 06:33 | XMS REPORT | Continuity of Care Document ---
:1960 External Reference #:[id number] Author Name Pippa Cedillo MD (transmitted by agent of provider Cinthya Tolbert) Address [address] [place] [address] Care Team Providers Name Role Phone Augusto Mulligan M.D. - Family Medicine Care Team Information Air Value Tester [phone] Problems Active Problems Provider Date Localized, primary osteoarthritis of the shoulder Pippa Cedillo MD Onset: 05/2018 region Strain of muscle(s) and tendon(s) of the rotator Pippa Cedillo MD Onset: 08/2018 cuff of left shoulder, subsequent encounter Synovitis and tenosynovitis Pippa Cedillo MD Onset: 08/17/2018 Strain of muscle(s) and tendon(s) of the rotator Pippa Cedillo MD Onset: cuff of right shoulder, subsequent encounter Bicipital tenosynovitis Pippa Cedillo MD Onset: 03/20/2019 Incomplete rotator cuff tear or rupture of right Pippa Cedillo MD Onset: 05/2019 shoulder, not specified as traumatic Social History Type Date Description Comments Sex Unknown ETOH Use Denies alcohol use Tobacco Use Start: Unknown Patient has never smoked Smoking Status Reviewed: 11/01/19 Patient has never smoked Exercise Type/Frequency Exercises regularly Allergies, Adverse Reactions, Alerts Description No Known Drug Allergies Medications Active Medications SIG Qnty Indications Ordering Provider Date Lisinopril-Hydrochlorot 1 by mouth every Unknown hiazide day 10-12.5mg Tablets History Medications Amoxicillin/Clavulanate take 4 tabs 1 4tabs M19.011 Zaneb 08/16/2019 - Potassium hour prior to MD Nguyen 10/31/2019 500-125mg Tablets dental procedure Keflex 1 tab by mouth 20caps Pippa 05/25/2019 - 500mg Capsules four times a MD Nguyen 05/30/2019 day Percocet take 1 tabs by 42tabs Pippa 05/25/2019 - 5-325mg Tablets mouth q4-6 MD Nguyen 05/30/2019 hours as needed pain Medications Administered in Office Medication SIG Qnty Indications Ordering Provider Date Depomedrol 40MG Joseph Adame M.D. 01/15/2019 Injection Triamcinolone (Kenalog) Pippa Cedillo MD 08/17/2018 Injection Hyalagan Or Supartz, For Pippa Cedillo MD 05/23/2018 Intra-Articular Inject Per Dose Injection Hyalagan Or Supartz, For Pippa Cedillo MD 05/23/2018 Intra-Articular Inject Per Dose Injection Triamcinolone (Kenalog) Pippa Cedillo MD 05/23/2018 Injection Hyalagan Or Supartz, For Pippa Cedillo MD 05/11/2018 Intra-Articular Inject Per Dose Injection Hyalagan Or Supartz, For Pippa Cedillo MD 05/11/2018 Intra-Articular Inject Per Dose Injection Hyalagan Or Supartz, For Pippa Cedillo MD 05/04/2018 Intra-Articular Inject Per Dose Injection Hyalagan Or Supartz, For Pippa Cedillo MD 05/04/2018 Intra-Articular Inject Per Dose Injection Hyalagan Or Supartz, For Pippa Cedillo MD 04/27/2018 Intra-Articular Inject Per Dose Injection Hyalagan Or Supartz, For Pippa Cedillo MD 04/27/2018 Intra-Articular Inject Per Dose Injection Hyalagan Or Supartz, For Pippa Cedillo MD 04/20/2018 Intra-Articular Inject Per Dose Injection Hyalagan Or Supartz, For Pippa Cedillo MD 04/20/2018 Intra-Articular Inject Per Dose Injection Depomedrol 40MG Joseph Adame M.D. 03/06/2018 Injection Depomedrol 40MG oJseph Adame M.D. 01/04/2018 Injection Depomedrol 40MG Joseph Adame M.D. 01/04/2018 Injection Depomedrol 40MG Joseph Adame M.D. 01/04/2018 Injection Depomedrol 80MG Azucena Perez M.D. 10/03/2014 Injection Depomedrol 80MG Azucena Perez M.D. 11/01/2013 Injection Depomedrol 40MG Bill Hernandez, 01/23/2010 Injection R.S.ASarahy-O Depomedrol 40MG Joseph Adame M.D. 12/31/2009 Injection Depomedrol 40MG Marcela Briones PA 12/25/2009 Injection Immunizations Description No Information Available Vital Signs Date Vital Result Comment 11/01/2019 2:00pm Height 69.75 inches 5'9.75" Weight 186.50 lb Heart Rate 86 /min BP Systolic 136 mmHg BP Diastolic 80 mmHg Respiratory Rate 12 /min Body Temperature 97.8 F Pain Level 5 BMI (Body Mass Index) 26.9 kg/m2 10/16/2019 8:09am Height 69 inches 5'9" Weight 181.00 lb Heart Rate 70 /min BP Systolic 120 mmHg BP Diastolic 82 mmHg Body Temperature 97.9 F Pain Level 0 BMI (Body Mass Index) 26.7 kg/m2 Results Test Acquired Date Facility Test Result H/L Range Note CBC Auto 05/10/2019 [facility] White Blood 5.6 10^3/uL Normal 3.5-10.[address] [place] [address] [phone] Red Blood Count 4.92 10^6/uL Normal 4.18-5.48 Hemoglobin 14.8 g/dL Normal 14.0-18.0 Hematocrit 45 % Normal 42-52 Mean Corpuscular Volume 91 fL Normal 80-94 Mean Corpuscular Hemoglobin 30 pg Normal 27-31 Mean Corpuscular HGB Conc 33 g/dL Normal 31-36 Red Cell Distribution Width 14 % Normal 10-15 Platelet Count 233 10^3/uL Normal 150-450 Mean Platelet Volume 8.4 fL Normal 7.4-10.4 Abs Neutrophils 2.8 10^3/uL Normal 1.5-7.7 Abs Lymphocytes 2.0 10^3/uL Normal 1.0-4.8 Abs Monocytes 0.6 10^3/uL Normal 0-0.8 Abs Eosinophils 0.1 10^3/uL Normal 0-0.6 Abs Basophils 0.1 10^3/uL Normal 0-0.2 Abs Nucleated RBC 0.0 10^3/uL Granulocyte % 50.5 % Lymphocyte % 35.8 % Monocyte % 10.9 % Eosinophil % 1.8 % Basophil % 1.0 % Nucleated Red Blood Cells % 0.0 Urinalysis Profile 05/10/2019 [facility] Urine Color Yellow [address] [place] [address] [phone] Urine Appearance Clear Urine Specific [place] 1.014 Normal 1.010-1.030 Urine pH 5.0 Normal 5-9 Urine Urobilinogen Negative Negative Urine Ketones Negative Negative Urine Protein Negative Negative Urine Leukocytes Negative Negative Urine Blood Negative Negative Urine Nitrite Negative Negative Urine Bilirubin Negative Negative Urine Glucose Negative Negative Inr/Protime 05/10/2019 [facility] Inr 0.94 Normal 0.82-1.09 1 [address] [place] [address] [phone] Laboratory test 05/10/2019 [facility] Partial 38.9 High 26.0- 38.0 finding [address] [facility] [place] [address] Time PTT [phone] Basic Metabolic 05/10/2019 [facility] Sodium 139 mmol/L Normal 135-[address] [place] [address] [phone] Potassium 4.8 mmol/L Normal 3.5-5.0 Chloride 104 mmol/L Normal 101-111 Co2 Carbon Dioxide 29 mmol/L Normal 22-32 Anion Gap 6 mmol/L Normal 2-11 Glucose 97 mg/dL Normal 70-100 Blood Urea Nitrogen 20 mg/dL Normal 6-24 Creatinine 1.06 mg/dL Normal 0.67-1.17 BUN/Creatinine Ratio 18.9 Normal 8-20 Calcium 9.6 mg/dL Normal 8.6-10.3 Egfr Non- 71.3 >60 Egfr 86.2 >60 2 Laboratory 05/10/2019 [facility] TSH (Thyroid 2.40 Normal 0.34 -5.60 test finding [address] [place] [address] Stim Horm) mcIU/[place] [address] [phone] Free T4 (Free Thyroxine) 0.98 ng/dL Normal 0.61-1.12 Type & Screen 05/10/2019 [facility] Patient Blood Type O Positive [address] [place] [address] [phone] Antibody Screen NEGATIVE Urine Culture And 05/10/2019 [facility] Urine Culture SEE RESULT [address] [place] [address] [phone] 1 Standard intensity warfarin therapeutic range: 2.0-3.0 High intensity warfarin therapeutic range: 2.5-3.5 2 Because ethnic data is not always readily available, this report includes an eGFR for both -Americans and non- Americans. The National Kidney Disease Education Program (NKDEP) does not endorse the use of the MDRD equation for patients that are not between the ages of 18 and 70, are , have extremes of body size, muscle mass, or nutritional status, or are non- or non-. According to the National Kidney Foundation, irrespective of diagnosis, the stage of the disease is based on the level of kidney function: Stage Description GFR(mL/min/1.73 m(2)) 1 Kidney damage with normal or decreased GFR 90 2 Kidney damage with mild decrease in GFR 60-89 3 Moderate decrease in GFR 30-59 4 Severe decrease in GFR 15-29 5 Kidney failure <15 (or dialysis) 3 SEE RESULT BELOW Name: JONATHAN DONALDSON : [address]: Pippa Cedillo MD Acct: [id number] Unit: [id number] AGE: 59 Location: [facility] Re05/10/19 SEX: M Status: REG REF SPEC: [id number] SAMUEL: 05/10/19-[address]: Pippa Cedillo MD REQ: [id number] RECD: 05/10/19 STATUS: COMP _ SOURCE: URINE SPDESC: ORDERED: Urine Culture QUERIES: Urine Source: Clean Catch Procedure Result Reported Site Urine Culture Final 05/11/19- 1329 ML No Growth (<1,000 CFU/mL) * ML - Main Lab . END OF REPORT DEPARTMENT OF PATHOLOGY, [address] [place] [address] Sung Holliday M.D. Director [facility] # [id number] Procedures Date Code Description Status 05/24/2019 62474 Arthroplasty,Total Shoulder Replacement (TSR) Completed 05/24/2019 62252 Arthroplasty,Total Shoulder Replacement (TSR) Completed Medical Devices Description No Information Available Encounters Type Date Location Provider Dx Diagnosis Office Visit 10/16/2019 [facility] Pippa Cedillo MD Z96.611 Presence of right 8:15a at [place] artificial shoulder joint M19.011 Primary osteoarthritis, right shoulder M19.012 Primary osteoarthritis, left shoulder Assessments Date Code Description Provider 11/01/2019 M19.012 Primary osteoarthritis, left shoulder Pippa Cedillo MD 10/16/2019 Z96.611 Presence of right artificial shoulder Pippa Cedillo MD joint 10/16/2019 M19.011 Primary osteoarthritis, right shoulder Pippa Cedillo MD 10/16/2019 M19.012 Primary osteoarthritis, left shoulder Pippa Cedillo MD 08/16/2019 Z47.1 Aftercare following joint replacement Pippa Cedillo MD surgery 08/16/2019 Z96.611 Presence of right artificial shoulder Pippa Cedillo MD joint 07/06/2019 M19.011 Primary osteoarthritis, right shoulder Pippa Cedillo MD 07/06/2019 Z47.1 Aftercare following joint replacement Pippa Cedillo MD surgery 07/06/2019 Z96.611 Presence of right artificial shoulder Pippa Cedillo MD joint 06/05/2019 M19.011 Primary osteoarthritis, right shoulder Pippa Cedillo MD 06/05/2019 Z47.1 Aftercare following joint replacement Pippa Cedillo MD surgery 06/05/2019 Z96.611 Presence of right artificial shoulder Pippa Cedillo MD joint 05/24/2019 M19.011 Primary osteoarthritis, right shoulder Pippa Cedillo MD 05/24/2019 M19.011 Primary osteoarthritis, right shoulder Jordyn Arora PA-C 05/04/2019 M19.011 Primary osteoarthritis, right shoulder Pippa Cedillo MD 05/04/2019 M75.111 Incomplete rotator cuff tear or rupture of Pippa Cedillo MD right shoulder, n Plan of Treatment Future Appointment(s):11/29/2019 2:00 pm - Pippa Cedillo MD at [facility] at [id number]/16/2019 1:15 pm - Pippa Cedillo MD at [facility] at Coqsnl9611/01/2019 - Pippa Cedillo, MDM19.012 Primary osteoarthritis , left shoulderFollow up:Follow up: 10-14 days postops as scheduled Functional Status Description No Information Available Mental Status Description No Information Available Referrals Description No Information Available
--- OUTSIDE RECORDS SUMMARY | 2019-11-16 06:33 | XMS REPORT | Continuity of Care Document ---
:1960 External Reference #:[id number] Author Name Pippa Cedillo MD (transmitted by agent of provider Neena Shaikh) Address [address] [place] [address] Care Team Providers Name Role Phone Augusto Mulligan M.D. 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 Problems Active Problems Provider Date Localized, primary [...] Patient has never smoked Smoking Status Reviewed: 10/16/19 Patient has never smoked Exercise Type/Frequency Exercises regularly Allergies, Adverse Reactions, Alerts Description No Known Drug Allergies Medications Active Medications SIG Qnty Indications Ordering Provider Date Amoxicillin/Clavulan take 4 tabs 1 hour 4tabs M19.011 Pippa Cedillo MD 01/2019 ate Potassium prior to dental procedure 500-125mg Tablets Diclofenac Sodium take 1 tablet 60tabs M19.011 Pippa Cedillo MD 04/10/2019 twice a day with 75mg Tablets DR robbie Ibuprofen prn pain Unknown Lisinopril-Hydrochlo 1 by mouth every Unknown rothiazide day 10-12.5mg Tablets History Medications Keflex 1 tab by mouth 20caps Pippa Cedillo MD 05/25/2019 - 500mg Capsules four times a day 05/30/2019 Percocet take 1 tabs by 42tabs Pippa Cedillo MD 05/25/2019 - 5-325mg mouth q4-6 hours 05/30/2019 Tablets as needed pain Medications Administered in Office [...] Joseph Adame M.D. 03/06/2018 Injection Depomedrol 40MG Joseph Adame M.D. 01/04/2018 Injection Depomedrol 40MG Joseph Adame M.D. 01/04/2018 Injection Depomedrol 40MG Joseph Adame M.D. 01/04/2018 Injection Depomedrol 80MG Azucena Perez M.D. 10/03/2014 Injection Depomedrol 80MG Azucena Perez M.D. 11/01/2013 Injection Depomedrol 40MG Bill Hernandez, 01/23/2010 Injection R.S.A.-O Depomedrol 40MG Joseph Adame M.D. 12/31/2009 Injection Depomedrol 40MG Marcela Briones PA 12/25/2009 Injection Immunizations Description No Information Available Vital Signs Date Vital Result Comment 10/16/2019 8:09am Height 69 inches 5'9" Weight 181.00 lb Heart Rate 70 /min BP Systolic 120 mmHg BP Diastolic 82 mmHg Body Temperature 97.9 F Pain Level 0 BMI (Body Mass Index) 26.7 kg/m2 08/16/2019 8:06am Height 69 inches 5'9" Weight 181.00 lb Heart Rate 50 /min BP Systolic 118 mmHg BP Diastolic 72 mmHg Body Temperature 97.0 F Pain Level 2 BMI (Body Mass Index) 26.7 kg/m2 Results Test Acquired Date Facility Test Result H/L Range Note CBC Auto 05/10/2019 [facility] White Blood 5.6 10^3/uL Normal 3.5-10.[address] [place] [address] [phone] Red Blood Count 4.92 10^6/uL Normal 4.18-5.48 [...] Blood Cells % 0.0 Urinalysis Profile 05/10/2019 [facility] Urine Color Yellow [address] [place] [address] [phone] Urine Appearance Clear Urine Specific [place] 1.014 Normal 1.010-1.030 Urine pH 5.0 Normal 5-9 Urine Urobilinogen Negative Negative Urine Ketones Negative Negative Urine Protein Negative Negative Urine Leukocytes Negative Negative Urine Blood Negative Negative Urine Nitrite Negative Negative Urine Bilirubin Negative Negative Urine Glucose Negative Negative Inr/Protime 05/10/2019 [facility] Inr 0.94 Normal 0.82-1.[address] [place] [address] [phone] Laboratory test 05/10/2019 [facility] Partial 38.9 High 26.0- 38.[address] [place] [address] [place] [address] Time PTT [phone] Basic Metabolic 05/10/2019 [facility] Sodium 139 mmol/L Normal 135-[address] [place] [address] [phone] Potassium 4.8 mmol/L Normal 3.5-5.0 Chloride 104 mmol/L Normal 101-111 Co2 Carbon Dioxide 29 mmol/L Normal 22-32 Anion Gap 6 mmol/L Normal 2-11 Glucose 97 mg/dL Normal 70-100 Blood Urea Nitrogen 20 mg/dL Normal 6-24 Creatinine 1.06 mg/dL Normal 0.67-1.17 BUN/Creatinine Ratio 18.9 Normal 8-20 Calcium 9.6 mg/dL Normal 8.6-10.3 Egfr Non- 71.3 >60 Egfr 86.2 >60 2 Laboratory 05/10/2019 [facility] TSH (Thyroid 2.40 Normal 0.34 -5.60 test finding [address] [place] [address] Stim Horm) mcIU/[place] [address] [phone] Free T4 (Free Thyroxine) 0.98 ng/dL Normal 0.61-1.12 Type & Screen 05/10/2019 [facility] Patient Blood Type O Positive [address] [place] [address] [phone] Antibody Screen NEGATIVE Urine Culture And 05/10/2019 [facility] Urine Culture SEE RESULT [address] [place] [address] [phone] 1 Standard intensity warfarin therapeutic range: 2.0-3.0 [...] [address]: Pippa Cedillo MD Acct: [id number] Unit: [id number] AGE: 59 Location: [facility] Re05/10/19 SEX: M Status: REG REF SPEC: [id number] SAMUEL: 05/10/19 [facility] DR: Pippa Cedillo MD REQ: [id number] RECD: 05/10/19 STATUS: COMP _ SOURCE: URINE SPDESC: ORDERED: Urine Culture QUERIES: Urine Source: Clean Catch Procedure Result Reported Site Urine Culture Final 05/11/19- 1325 ML No Growth (<1,000 CFU/mL) * ML - Main Lab . END OF REPORT DEPARTMENT OF PATHOLOGY, [address] [place] [address] Sung Holliday M.D. Director [facility] # [id number] Procedures Date Code Description Status 05/24/2019 67237 Arthroplasty,Total Shoulder Replacement (TSR) Completed 05/24/2019 84870 Arthroplasty,Total Shoulder Replacement (TSR) Completed Medical Devices Description No Information Available Encounters Type Date Location Provider Dx Diagnosis Office Visit 10/16/2019 [facility] Pippa Cedillo MD Z96.611 Presence of right 8:15a at [place] artificial shoulder joint M19.011 Primary osteoarthritis, right shoulder M19.012 Primary osteoarthritis, left shoulder Assessments Date Code Description Provider 10/16/2019 Z96.611 Presence of right artificial shoulder [...] MD right shoulder, n Plan of Treatment 10/16/2019 - Pippa Cedillo MDZ96.611 Presence of right artificial shoulder inuohM71.011 Primary osteoarthritis, right bduwjeoaF83.012 Primary osteoarthritis, left shoulderNew Xrays:CT Extremity Upper Left Wo, Ordered: 01/30Follow up:Follow up: 10-14 days post op Functional Status Description No Information Available Mental Status Description No Information Available Referrals Description No Information Available
--- OUTSIDE RECORDS SUMMARY | 2019-11-16 06:33 | XMS REPORT | Continuity of Care Document ---
:1960 External Reference #:[id number] Author Name Pippa Cedillo MD (transmitted by agent of provider Neena Shaikh) Address [address] [place] [address] Care Team Providers Name Role Phone Augusto Mulligan M.D. 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 Problems Provider Date Localized, primary [...] Result H/L Range Note CBC Auto 05/10/2019 [facility] White Blood 5.6 10^3/uL Normal 3.5-10.[address] [place] [address] [phone] Red Blood Count 4.92 10^6/uL Normal 4.18-5.48 [...] Blood Cells % 0.0 Urinalysis Profile 05/10/2019 [facility] Urine Color Yellow [address] [place] [address] [phone] Urine Appearance Clear Urine Specific [place] 1.014 Normal 1.010-1.030 Urine pH 5.0 Normal 5-9 Urine Urobilinogen Negative Negative Urine Ketones Negative Negative Urine Protein Negative Negative Urine Leukocytes Negative Negative Urine Blood Negative Negative Urine Nitrite Negative Negative Urine Bilirubin Negative Negative Urine Glucose Negative Negative Inr/Protime 05/10/2019 [facility] Inr 0.94 Normal 0.82-1.[address] [place] [address] [phone] Laboratory test 05/10/2019 [facility] Partial 38.9 High 26.0- 38.[address] [place] [address] [place] [address] Time PTT [phone] Basic Metabolic 05/10/2019 [facility] Sodium 139 mmol/L Normal 135-[address] [place] [address] [phone] Potassium 4.8 mmol/L Normal 3.5-5.0 Chloride 104 mmol/L Normal 101-111 Co2 Carbon Dioxide 29 mmol/L Normal 22-32 Anion Gap 6 mmol/L Normal 2-11 Glucose 97 mg/dL Normal 70-100 Blood Urea Nitrogen 20 mg/dL Normal 6-24 Creatinine 1.06 mg/dL Normal 0.67-1.17 BUN/Creatinine Ratio 18.9 Normal 8-20 Calcium 9.6 mg/dL Normal 8.6-10.3 Egfr Non- 71.3 >60 Egfr 86.2 >60 2 Laboratory 05/10/2019 [facility] TSH (Thyroid 2.40 Normal 0.34 -5.60 test finding [address] [place] [address] Stim Horm) mcIU/[place] [address] [phone] Free T4 (Free Thyroxine) 0.98 ng/dL Normal 0.61-1.12 Type & Screen 05/10/2019 [facility] Patient Blood Type O Positive [address] [place] [address] [phone] Antibody Screen NEGATIVE Urine Culture And 05/10/2019 [facility] Urine Culture SEE RESULT [address] [place] [address] [phone] 1 Standard intensity warfarin therapeutic range: 2.0-3.0 [...] [address]: Pippa Cedillo MD Acct: [id number] Unit: [id number] AGE: 59 Location: [facility] Re05/10/19 SEX: M Status: REG REF SPEC: [id number] SAMUEL: 05/10/[address] [facility] [address]: Pippa Cedillo MD REQ: [id number] RECD: 05/10/19 STATUS: COMP _ SOURCE: URINE SPDESC: ORDERED: Urine Culture QUERIES: Urine Source: Clean Catch Procedure Result Reported Site Urine Culture Final 05/11/19- 1320 ML No Growth (<1,000 CFU/mL) * ML - Main Lab . END OF REPORT DEPARTMENT OF PATHOLOGY, [address] [place] [address] Sung Holliday M.D. Director [facility] # [id number] Procedures Date Code Description Status 05/24/2019 74924 Arthroplasty,Total Shoulder Replacement (TSR) Completed 05/24/2019 09170 Arthroplasty,Total Shoulder Replacement (TSR) Completed Medical Devices Description No Information Available Encounters Description No Information Available Assessments Date Code Description Provider 10/16/2019 Z96.611 [...] shoulder, n Plan of Treatment Future Appointment(s):11/29/2019 11:30 am - Pippa Cedillo MD at [facility] at [id number]/16/2019 - Pippa Cedillo MDZ96.611 Presence of right artificial shoulder fseghP90.011 Primary osteoarthritis, right qihwulhoT98.012 Primary osteoarthritis, left shoulderNew Xrays:CT Extremity Upper Left Wo, Ordered: 10/16/19Follow up:Follow up: 10-14 days post op Functional Status Description No Information Available Mental Status Description No Information Available Referrals Description No Information Available
[2019-11-16] MEDS ORDERED: Ropivacaine 0.2% * 2 MG/ML VIAL ONE (06:41)
[2019-11-16] MEDS ORDERED: Buffered Lidocaine 1% SYRIN* 1 ML/SYRINGE INTRADERM ONE (07:12)
[2019-11-16] MEDS ORDERED: ceFAZolin 2 GM in NS PREMIX(*) 2 GM/100 ML BAG IVPB ONE (07:12)
[2019-11-16] MEDS ORDERED: Propofol* 10 MG/ML 20 ML BTL ONE (07:56)
[2019-11-16] MEDS ORDERED: Lidocaine 2% PF * 5 ML VIAL ONE ×2 (07:56→07:57)
[2019-11-16] MEDS ORDERED: ROPIVACAINE 5 MG/ML 30 ML BTL (0.5%) ONE (07:57)
[2019-11-16] MEDS ORDERED: Rocuronium* 10 MG/ML VIAL ONE ×3 (07:57→10:05)
[2019-11-16] MEDS ORDERED: Dexmedetomidine* 200 MCG/2 ML 2 ML VIAL ONE (07:57)
[2019-11-16] MEDS ORDERED: fentaNYL* 50 MCG/ML 2 ML VIAL (100 MCG VIAL) ONE (07:59)
[2019-11-16] MEDS ORDERED: Midazolam* 1 MG/ML 2 ML VIAL (2 MG) ONE (07:59)
[2019-11-16] MEDS ORDERED: Metoclopramide IV* 5 MG/ML 2 ML VIAL ONE (08:38)
[2019-11-16] MEDS ORDERED: Ondansetron INJ* 2 MG/ML VIAL ONE (08:38)
[2019-11-16] MEDS ORDERED: Dexamethasone IV* 4 MG/ML 1 ML (4 MG) ONE (08:38)
[2019-11-16] MEDS ORDERED: Phenylephrine 40 MCG/ML SYRINGE ONE (08:38)
[2019-11-16] MEDS ORDERED: Ketorolac INJ* 30 MG/ML 1 ML VIAL ONE (08:38)
[2019-11-16] MEDS ORDERED: Phenylephrine 10 MG/ML VIAL* 1 ML VIAL ONE (09:02)
[2019-11-16] MEDS ORDERED: HYDROmorphone INJ1* 1 MG/ML SYRINGE IV PRN (09:20)
[2019-11-16] MEDS ORDERED: oxyCODONE TAB* 5 MG TAB PO PRN ×2 (09:20→11:09)
[2019-11-16] MEDS ORDERED: DiMENhydriNATE IV* 50 MG/ML VIAL IV PUSH PRN (09:20)
[2019-11-16] MEDS ORDERED: Naloxone* 0.4 MG/ML 1 ML VIAL IV PRN (09:20)
[2019-11-16] MEDS ORDERED: Acetaminophen IV 1GM/100ML * 100 ML ONE (10:19)
[2019-11-16] MEDS ORDERED: Sugammadex * 500 MG/5 ML VIAL IV PUSH ONE (10:32)
[2019-11-16] MEDS ORDERED: traMADol TAB* 50 MG PO PRN (11:09)
[2019-11-16] MEDS ORDERED: traZODone TAB* 50 MG TAB PO PRN (11:09)
[2019-11-16] MEDS ORDERED: Ondansetron ODT TAB* 4 MG PO PRN (11:09)
[2019-11-16] MEDS ORDERED: diPHENhydraMINE IV* 50 MG/ML 1 ml VIAL (BENADRYL) IV PRN (11:09)
[2019-11-16] MEDS ORDERED: diPHENhydraMINE PO* 25 MG PO PRN (11:09)
[2019-11-16] MEDS ORDERED: Magnesium Hydroxide LIQ* 30 ML UDC PO PRN (11:09)
[2019-11-16] MEDS ORDERED: Morphine INJ* 2 MG/ML 1 ML SYRINGE (TWO MG - NEW SYRINGE VERSION) IV PRN (11:09)
[2019-11-16] MEDS ORDERED: Ondansetron INJ* 2 MG/ML VIAL IV PRN (11:09)
[2019-11-16] MEDS ORDERED: Polyethylene Glycol 3350* 17 GM PACKET PO PRN (11:09)
[2019-11-16] MEDS ORDERED: Cyclobenzaprine TAB* 10 MG PO PRN (11:09)
[2019-11-16] MEDS ORDERED: oxyCODONE/Acetamin 5/325 MG* TAB PO PRN (11:09)
[2019-11-16] MEDS ORDERED: Lactated Ringers 1000 ML Bag* 1,000 ML IV SCH (12:00)
[2019-11-16] MEDS: ceFAZolin 1 GM ADVAN(*) 1 GM in NS 0.9% 50 ML* 50 ML IVPB SCH (17:07)
[2019-11-16] MEDS: Acetaminophen TAB* 325 MG PO SCH (17:08)
[2019-11-16] MEDS: Docusate CAP* 100 MG PO SCH (22:00)
[2019-11-17] MEDS: oxyCODONE/Acetamin 5/325 MG* TAB PO PRN ×2 (00:45→05:25)
[2019-11-17] MEDS: ceFAZolin 1 GM ADVAN(*) 1 GM in NS 0.9% 50 ML* 50 ML IVPB SCH ×2 (00:50→08:28)
[2019-11-17] MEDS: Acetaminophen TAB* 325 MG PO SCH ×2 (02:23→08:35)
[2019-11-17 07:13] LABS: Hematocrit 35 % (42-52); Hemoglobin 11.9 g/dL (14.0-18.0); Mean Platelet Volume 8.5 fL (7.4-10.4); Platelet Count 207 10^3/uL (150-450)
[2019-11-17 07:25] LABS: BUN/Creatinine Ratio 26.4 (8-20); Calcium 8.4 mg/dL (8.6-10.3); EGFR African American 108.3 (>60); EGFR Non-African American 89.5 (>60); Potassium 3.7 mmol/L (3.5-5.0)
[2019-11-17] MEDS ORDERED: Ketorolac TAB * 10 MG TAB PO PRN (07:45)
--- NOTE | 2019-11-17 07:45 | PN ---
Progress Note - Progress Note Date of Service: 11/17/19 Note: Pt seen and examined. Pain about 5-6/10. Percocet not covering entirely. Denies numbness and tingling. No fevers or chills. Temp Pulse Resp BP Pulse Ox 98.2 F 55 18 122/63 95 11/17/19 07:34 11/17/19 07:34 11/17/19 07:40 11/17/19 07:34 11/17/19 07:34 NAD. AAOx3. left shoulder dressing in place. drain in place. SILT grossly distally. able to flex/ext digits. brisk cap refill Laboratory Results - last 24 hr 11/17/19 11/17/19 06:34 06:34 Hgb 11.9 L Hct 35 L Plt Count 207 MPV 8.5 Sodium 137 Potassium 3.7 Chloride 108 Carbon Dioxide 24 Anion Gap 5 BUN 23 Creatinine 0.87 Est GFR ( Amer) 108.3 Est GFR (Non-Af Amer) 89.5 BUN/Creatinine Ratio 26.4 H Glucose 113 H Calcium 8.4 L Xrays reviewed and acceptable A/P 59 yo M s/p L TSA NWB. PT/OT post op abx pain not controlled well. will add toradol potential d/c home today if pain controlled drain d/c'd with tip intact.
[2019-11-17] MEDS: Docusate CAP* 100 MG PO SCH (08:30)
[2019-11-17] MEDS ORDERED: Lisinopril TAB* 10 MG PO SCH (09:00)
[2019-11-17] MEDS ORDERED: Hydrochlorothiazide TAB* 25 MG PO SCH (09:00)
[2019-11-17] MEDS ORDERED: Vitamin THERAPEUTIC TAB PO SCH (09:00)
[2019-11-17 11:29] VITALS: BP 119/53
[2019-11-17] MEDS ORDERED: Enoxaparin(*) 40 MG/0.4 ML SYR SUBCUT SCH (12:00)
--- NOTE | 2019-11-17 12:56 | DS ---
Orthopedic Discharge Summary - Discharge Summary Date of service: 11/17/19 Date of Admission:11/16/19 Date of Discharge: [11/17/19] Date of Surgery: [11/16/19] Attending Orthopedic Provider: [Dr. Cedillo] Pre-operative Diagnosis: [Left shoulder OA] Operative Procedure: [left total shoulder replacement] Disposition of Patient: [Home] Condition of Patient: [Stable] History: MELISA BALDERAS is a 59 year old M with years of increasingly severe left shoulder pain due to severe GH joint OA. Patient has failed conservative management and has elected to undergo a [left] total [shoulder] replacement Hospital Course: MELISA was admitted to [facility] on 11/16/19. Patient underwent a [left total shoulder replacement] without complication followed by a brief recovery in PACU and transfer to the Short Stay Surgical Unit in stable condition. Our hospitalist service, physical therapy and occupational therapy also participated in this patients care. Post-op day 1: patient was alert and in no acute distress. Dressing was clean, dry and intact. Operative wrist +F/E, able to make full fist, sensation intact to light touch distally. Patient was deemed to be medically and orthopedically stable for discharge. Physical therapy goals were met. Home Medications Medication Instructions Recorded Confirmed Type Lisinopril/HCTZ 08/25.(NF) 1 tab PO QAM 10/24/14 11/16/19 History [Zestoretic 08/25.5(NF)] Docusate CAP* [Colace Cap*] 100 mg PO BID cap 11/17/19 Rx Ketorolac TAB * [Toradol TAB *] 10 mg PO Q6H PRN tab 11/17/19 Rx oxyCODONE/Acetamin 5/325 MG* 1 tab PO Q4H PRN tab MDD 10 11/17/19 Rx [Percocet 5/325 TAB*] oxyCODONE/Acetamin 5/325 MG* 2 tab PO Q4H PRN tab MDD 10 11/17/19 Rx [Percocet 5/325 TAB*] DISCHARGE INSTRUCTIONS: Non weight bearing left upper extremity, ok to do gentle movement of elbow wrist and hand. Do not move the shoulder. Wound Care: OK to shower on post-op day 3, no bathing/ swimming/ submerging wound. Use gentle soap, pat dry. Cover with gauze, PASHA wrap or tape. Call Orthopedic office for increased drainage, redness, increased pain, or fever. Go to ER with shortness of breath or chest pain. Diet: Regular diet, increase fluids and fiber to prevent constipation. Continue to use stool softeners, call office if no bowel motion within 48 hours. Colace 100 mg take 1 tab every 8 hours as needed for constipation - Continue physical therapy and occupational therapy exercises as shown. - Pain control with: Toradol (ketorolac) 10 mg take 1 tab every 6 hours x 3 days post op for pain control Percocet 5/325 mg 1-2 tabs by mouth every 4-6 hours as needed for pain. Maximum of 10 tabs per day Please note that percocet contains tylenol (acetaminophen). Maximum daily dose of tylenol is 4000 mg from all sources. - Antibiotics required prior to any dental work. FOLLOW UP: Follow up with Dr. Cedillo Within 10-14 days, call for appointment Please call our office with any questions or concerns ([phone]) medications sent to [facility]
--- NOTE | 2019-11-17 13:59 | OP ---
DATE OF OPERATION: 11/16/19 - ROOM #[id number] DATE OF : 58 SURGEON: Pippa Cedillo MD. CREW CLERK: PURVI Herman. An junior assistant manager was needed for the entirety of the case to help with positioning, retraction, and was utilized throughout all portions of the case. ANESTHESIOLOGIST: Dr. Cronin. ANESTHESIA: General, interscalene block. PRE-OP DIAGNOSIS: Right shoulder end-stage glenohumeral arthritis. POST-OP DIAGNOSIS: Right shoulder end-stage glenohumeral arthritis. OPERATIVE PROCEDURE: Right total shoulder arthroplasty. COMPLICATIONS: None. ESTIMATED BLOOD LOSS: About 100. OUTPUT: Drain x1. IMPLANTS: Aequalis Perform M30 pegged Cortiloc with a size 2 nucleus and a size 46 head. COMPLICATIONS: None. INDICATIONS: Jonathan Donaldson is a 59-year-old male with end-stage glenohumeral arthritis he has on both shoulders. The left shoulder had an anatomic replacement done earlier this year. He has failed conservative management and elected to proceed with surgical treatment. Risks, and benefits including but not limited to bleeding; infection; damage to nerves, vessels, surrounding structures; wound nonhealing; persistent pain; need for further surgery; scarring, stiffness; incomplete relief of symptoms and risks of anesthesia. DESCRIPTION OF PROCEDURE: The patient was greeted in the preoperative area by the attending surgeon. The correct extremity was marked and consent was confirmed. The patient underwent interscalene nerve block by anesthesiologist after which he was brought back to the operating suite where he was placed on supine position on the operating table. He then underwent general anesthia and was positioned in the lazy beach chair position. The right shoulder was prepped and draped in the usual sterile fashion including chlorhedixine soap scrub and alcohol wipe with a final prep of chloroprep. After appropriate surgical pause indicating site, side, and procedure, the deltopectoral interval was then made using 15-blade. The soft tissues were carefully dissected to expose the deltopectoral interval. The cephalic vein was identified and taken laterally with the deltoid. The abundant adhesions were then released. CA ligament was visualized and a very small portion was released to allow some motion. His preoperative motion was external rotation of about 15 degrees and forward flexion to about a 130 degrees. Proximal 1 to 1.5 cm of the pec was then released using the electrocautery device. The biceps had been previously tenodesed but the groove was identified and traced proximally. The subscap was identified and then released in a subscap peel fashion with care to preserve all of the tendon if possible. There was no obvious tearing of the supra and infraspinatus tendon. The humeral head was exposed. There was significant osteophyte inferiorly which was removed using osteotome to determine the anatomic neck. Once this was identified, a freehanded neck cut was then made with care to prevent damage to the rotator cuff. After which, the sizing was placed, a size 2 was found to be appropriate. The guidepin was then placed in the center of the head and then reamed and then the size 2 nucleus was then placed and the protection plate was placed. Attention was then directed to the glenoid. The posterior retractor was then placed. There was abundant scar tissue that was present. The adhesions to the subscapularis were then released carefully over the nerve to make sure there was no iatrogenic injury and capsule was removed. A size M30 which is similar to his other side was then placed and found to be appropriate fit. A guidewire was then able to be placed successfully , therefore was in place without significant tension. Therefore once starting point was identified, the center peg hole was then drilled and then reaming was based of that. The reamer was then used to ream away soft tissues to allow for good bony bleeding bed. The peg hole trial was then placed and the 3 pegs were then drilled with excellent purchase. The bone quality was quite hard. The shoulder was then irrigated. At this point, the trial was then placed and found to have appropriate fit and I was happy with the positioning. The final implant was chosen and cement was then mixed. The first batch of the cement was too runny and the implant did not sit well, therefore we opened the second batch and used new glenoid and then allowed for better fixation and better fit. Once this was impacted into place, it was held for approximately 5 minutes while cement was curing and then the attention was directed to the humerus. The humerus was exposed and the size 2 nucleus was checked again. Trialing then began and size 46 was found to be a good fit with appropriate amount of shuck and recoil. The subscap was able to be brought over appropriately without any excess tension. The final implants were then chosen and then the 3 intraosseous drill tunnels were then placed for subscap fixation, therefore a subscap repair. The final implants were impacted into position with excellent purchase and previously placed #5 Ethibond sutures were going to be used for the subscap repair. Prior to this, irrigation was done. The subscap was closed as well as closing the interval with two #2 Ethibond. The shoulder was taken through range of motion, external rotation. Shoulder was fixed, was secured. Subscap was repaired with a shoulder externally rotated to about 50 degrees. The wounds were copiously irrigated with sterile saline. Intraarticular drain was placed and the patient was bit more oozy than average. Deltopectoral interval was closed with #2 Ethibond. Skin was closed in layers with 3-0 Monocryl. Sterile dressings were applied. A Cryo/Cuff and UltraSling were applied. He was awoken from anesthesia and transferred to PACU in stable condition. POSTOPERATIVE PLAN: He will be discharged on postop day #1. He will receive 24 hours postoperative antibiotics. We will control the pain with Percocet and potentially Toradol. DVT prophylaxis will be Lovenox while he is inhouse, but he will not go home on anything. I will see the patient back in 10 to 14 days. [id number]/[facility] #: [id number] [facility]ENTERRegan
[2019-11-18] MEDS ORDERED: Bisacodyl SUPP* 10 MG SUPP PR PRN (11:09)
== END 2019-11-17 12:05 | disposition home or self-care (01) | DRG 315 ==
LOC: AA 06:29 → SSU 11:09
PROVIDERS: ADMIT Orthopaedic Surgery; ATTEND Orthopaedic Surgery
PROC: 0RRJ00Z Replacement of Right Shoulder Joint with Reverse Ball and Socket Synthetic Substitute, Open Approach (ICD-10-PCS; principal; 2019-11-16 08:30)
DX: M19.012 Primary osteoarthritis, left shoulder (principal); Z96.611 Presence of right artificial shoulder joint; I10 Essential (primary) hypertension; C61 Malignant neoplasm of prostate; M25.711 Osteophyte, right shoulder; Z79.899 Other long term (current) drug therapy; Z82.61 Family history of arthritis; Z80.1 Family history of malignant neoplasm of trachea, bronchus and lung
CPT/HCPCS: 36415; 80048; 85014; 85018; 85049; A9270-GY; C1776; J0690; J1100; J1650; J1885; J2250; J2405; J2704; J2765; J2795; J3010